=== PATIENT | male | born 1930 | race Caucasian/White ===

== ENCOUNTER 2017-07-16 09:21 | Emergency (ER) | payer MEDICARE ==
[~2017-07-16] VITALS: Ht 152.4 cm; Wt 81.7 kg
[~2017-07-16 09:21] MED LIST: ? BP MED; ALLO100; ALLO100 PO; AMLO10; AMLO10 PO; Aspir 8181 MG PO; BENA20; BENA20 PO; Benazepril HCl5 MG; CHOL10002 PO; CINA30; CINA30 PO; Cipro500 MG PO; FINA5; FINA5 PO; RANI150; RANI150 PO; TAMS.4ER PO; TRIPHROCAPS SOFT1 MG PO
== END 2017-07-16 12:24 | disposition home or self-care (01) ==
LOC: ER 09:21
DX: M79.89 Other specified soft tissue disorders (principal); I10 Essential (primary) hypertension; Z79.899 Other long term (current) drug therapy
CPT/HCPCS: 93971; 99284

== ENCOUNTER → 2017-07-19 | Outpatient (CLI) | payer MEDICARE ==
[2017-07-21 11:06] LABS: Albumin 47.8 % (45.0-80.0); Protein, Total 6.3 g/dL (6.1-7.8)
== END ==
LOC: LAB SHORT 09:55 → LAB 09:55
PROVIDERS: Internal Medicine Nephrology
DX: E83.52 Hypercalcemia (principal)
CPT/HCPCS: 84165; 86334

== ENCOUNTER → 2017-09-13 | Outpatient (CLI) | payer MEDICARE | END | disposition home or self-care (01) | LOC: LAB SHORT 08:43 → PLD 08:43 | DX: C44.319 Basal cell carcinoma of skin of other parts of face (principal) | CPT/HCPCS: 88305 ==

== ENCOUNTER → 2018-05-13 | Outpatient (CLI) | payer MEDICARE ==
[2018-05-13 17:35] LABS: Hemoglobin 10.5 g/dL (13.5-17.5)
== END | disposition home or self-care (01) ==
LOC: EDSTATUS 08:15 → LAB DAV 17:19 → LAB 17:19
PROVIDERS: Internal Medicine Nephrology
DX: N18.6 End stage renal disease (principal); D63.1 Anemia in chronic kidney disease
CPT/HCPCS: 85014; 85018